=== PATIENT | male | born 1950 | race Caucasian/White ===

== ENCOUNTER → 2022-04-11 10:15 | Outpatient (BNVA) | payer OTHER, SELFPAY | PROVIDERS: Family Provider Urology; PCP Physician Assistant; Visit Provider Nurse Practitioner | DX: R06.09 Other forms of dyspnea (principal) | CPT/HCPCS: 71046 ==

== ENCOUNTER 2022-06-03 06:00 | Outpatient (RCR) | payer MEDICARE, OTHER, SELFPAY | END 2022-06-13 23:59 | disposition home or self-care (01) | LOC: GPT 06:00 | PROVIDERS: PCP Physician Assistant; Visit Provider Nurse Practitioner | DX: M62.59 Muscle wasting and atrophy, not elsewhere classified, multiple sites (principal) | CPT/HCPCS: 97110; 97112; 97162 ==

== ENCOUNTER 2022-06-14 06:00 | Outpatient (RCR) | payer MEDICARE, OTHER, SELFPAY | END 2022-07-14 23:59 | disposition home or self-care (01) | LOC: GPT 06:00 | PROVIDERS: PCP Physician Assistant; Visit Provider Nurse Practitioner | DX: M62.59 Muscle wasting and atrophy, not elsewhere classified, multiple sites (principal) | CPT/HCPCS: 97110; 97112 ==